=== PATIENT | female | born 1960 | race Caucasian/White ===

== ENCOUNTER 2019-06-09 15:59 | Inpatient (IN) ==
[~2019-06-09 15:59] MED LIST: DIPRIVAN VIAL ONE; XYLOCAINE 1 % (PLAIN) ONE
--- NOTE | 2019-06-09 16:03 | DR.GENAD ---
HPI Time Seen Time Seen by Provider: 06/09/19 16:02 HPI Comment HPI Comment: 58 yo f w/ prev hx of type 2 DM, gerd, CVA presents w/ n/v x 3 weeks. Patient reports since recent dc from hospital after having an ischemic CVA persistent n/v. 4-5 per day of non bilious/ non bloody emesis. a/w diffuse abdominal cramping and loose/ watery stools w/o blood or mucous. No chacon, new numbness/ weakness, f/c, urinary irritative sx's. Placed on insulin recently after recent hospital dc. No residual deficits from stroke reportedly. PMH PMH Past Medical History: Yes Past Medical History Comment: dm, hld, gerd, type 2 dm, cva Past Surgical History: Yes Social History Does patient currently use any type of tobacco product: No Have you used tobacco products in the last 12 months: No Type of Tobacco Use: None Alcohol Use: None Do you use any recreational Drugs:: No ROS Review of Systems Constitutional: Loss of Appetite; negative Chills and Fever Eyes: No Symptoms Reported ENTM: No Symptoms Reported Respiratoy: No Symptoms Reported Cardiovascular: No Symptoms Reported Gastrointestinal/Abdominal: Abdominal Pain, Diarrhea, Nausea, Vomiting and Food Intolerance; negative Constipation Genitourinary: No Symptoms Reported Neurological: No Symptoms Reported; negative Headache, Numbness, Paresthesia, Pre-existing Deficit, Tingling and Dizziness Musculoskeletal: No Symptoms Reported Integumentary: No Symptoms Reported Hematologic/Lymphatic: No Symptoms Reported Endocrine: No Symptoms Reported Psychiatric: No Symptoms Reported All Other Systems: Reviewed and Negative PE Vital Signs Vitals: Temperature 98.8 F Pulse Rate 79 Respiratory Rate 18 Blood Pressure 144/66 O2 Sat by Pulse Oximetry 94 General Limitations: No Limitations General Appearance: Alert and In No Apparent Distress Head Head Exam: Normal Inspection Eyes Eye exam: Normal Appearance ENT ENT Exam: Normal Exam External Ear Exam: Normal External Inspection TM/Canal Exam: Bilateral: Normal Nose Exam: Normal Nose Exam Mouth Exam: Normal Inspection Throat Exam: Normal Inspection Neck Neck Exam: Normal Inspection Chest Chest Inspection: Normal Inspection Respiratory Respiratory Exam: Normal Lung Sounds Bilat Respiratory Exam: Bilateral: Clear to Auscultation Cardiovascular Cardiovascular Exam: Regular Rate and Normal Rhythm Abdominal Exam Abdominal Exam: Normal Inspection, Normal Bowel Sounds and Soft Extremities Extremities Exam: Normal Inspection Back Back Exam: Normal Inspection Neurologic Neurological Exam: Alert and Oriented X3 Psychiatric Psychiatric Exam: Normal Affect and Normal Mood Skin Skin Exam: Warm, Dry, Intact and Normal Color MDM Additional Information Additional Information Obtained From: Old Records and Family Differential Diagnosis Differential Diagnosis: gastroenteritis, cva, ischemic bowell, uti COURSE Treatment Treatment: 58 yo f recently dc'd from hospital 3 weeks ago for ischemic cva presents w/ n/v. On exam, abd exam benign. Neurologically intact. CTH negative. Mild leukocytosis noted. Markedly elevated cre. Hyperglycemia noted. No prev hx of renal insufficiency in the past. Suspect CANDE from hypovolemia from recent GI losses. Will place iv. Will give IVF bolus and start aggressive hydration. Will replete K. Zofran ordered. Urine lytes ordered. Will require admission for cande eval. Consultation Consultation Comments: Discussed all details of case w/ Dr Boykin, whom agrees to admit patient. Education/Counseling Education/Counseling: Patient and Family Educated On: Treatment, Diagnosis and Prognosis ROR Labs Reviewed Laboratory Results Reviewed?: Yes Result Diagrams: 06/09/19 16:34 06/09/19 16:34 Laboratory: WBC 12.6 X10^3/uL (3.6-10.0) H 06/09/19 16:34 RBC 5.85 X10^6/uL (3.5-5.4) H 06/09/19 16:34 Hgb 15.9 g/dL (12.0-16.0) 06/09/19 16:34 Hct 47.4 % (36.0-47.0) H 06/09/19 16:34 MCV 81.0 fL (80.0-100.0) 06/09/19 16:34 MCH 27.3 pg (27.0-34.0) 06/09/19 16:34 MCHC 33.6 g/dL (33.0-35.0) 06/09/19 16:34 RDW 14.4 % (11.6-16.5) 06/09/19 16:34 Plt Count 265 X10^3/uL (150.0-450.0) 06/09/19 16:34 MPV 8.8 fL (7.4-11.0) 06/09/19 16:34 Neut % (Auto) 81.0 % (42.0-75.0) H 06/09/19 16:34 Lymph % (Auto) 13.3 % (21.0-51.0) L 06/09/19 16:34 Cuming % (Auto) 4.4 % (0.0-13.0) 06/09/19 16:34 Eos % (Auto) 0.7 % (0.9-2.9) L 06/09/19 16:34 Baso % (Auto) 0.6 % (0.2-1.0) 06/09/19 16:34 Neut # (Auto) 10.2 x10^3/uL (2.2-4.8) H 06/09/19 16:34 Lymph # (Auto) 1.7 X10^3/uL (1.3-2.9) 06/09/19 16:34 Cuming # (Auto) 0.6 x10^3/uL (0.3-0.8) 06/09/19 16:34 Eos # (Auto) 0.1 x10^3/uL (0.0-0.2) 06/09/19 16:34 Baso # (Auto) 0.1 X10^3/uL (0.0-0.1) 06/09/19 16:34 Absolute Nucleated RBC 0.0 /100WBC 06/09/19 16:34 Sodium 144 mmol/L (136-145) 06/09/19 16:34 Corrected Sodium 149 mmol/L (136-145) H 06/09/19 16:34 Potassium 2.8 mmol/L (3.5-5.1) L* 06/09/19 16:34 Chloride 99 mmol/L (98-107) 06/09/19 16:34 Carbon Dioxide 31.4 mmol/L (21-32) 06/09/19 16:34 BUN 33 mg/dL (7-18) H 06/09/19 16:34 Creatinine 3.87 mg/dL (0.55-1.02) H 06/09/19 16:34 Est GFR (MDRD) Af Amer 15 (>60) L 06/09/19 16:34 Est GFR (MDRD) Non-Af 13 (>60) L 06/09/19 16:34 Glucose 304 mg/dL (65-99) H 06/09/19 16:34 Calcium 9.5 mg/dL (8.5-10.1) 06/09/19 16:34 Opioid Opioid Risk Tool Total: 0 Total Score Risk Category: Low Risk Copyright: [employer] HAND predicting aberrant behaviors
[2019-06-09] MEDS ORDERED: ZOFRAN INJ 4 MG VIAL IVP ONE (16:06)
[2019-06-09 16:09] VITALS: BMI 35.2
[2019-06-09 16:47] LABS: BASOPHILS # (AUTO) 0.1 X10^3/uL (0.0-0.1); BASOPHILS % (AUTO) 0.6 % (0.2-1.0); EOSINOPHILS # (AUTO) 0.1 x10^3/uL (0.0-0.2); EOSINOPHILS % (AUTO) 0.7 % (0.9-2.9); HEMATOCRIT 47.4 % (36.0-47.0); HEMOGLOBIN 15.9 g/dL (12.0-16.0); LYMPHOCYTES # (AUTO) 1.7 X10^3/uL (1.3-2.9); LYMPHOCYTES % (AUTO) 13.3 % (21.0-51.0); MEAN CORPUSCULAR HEMOGLOBIN 27.3 pg (27.0-34.0); MEAN CORPUSCULAR HGB CONC 33.6 g/dL (33.0-35.0); MEAN PLATELET VOLUME 8.8 fL (7.4-11.0); MONOCYTES # (AUTO) 0.6 x10^3/uL (0.3-0.8); MONOCYTES % (AUTO) 4.4 % (0.0-13.0); NEUTROPHILS # (AUTO) 10.2 x10^3/uL (2.2-4.8); PLATELET COUNT 265 X10^3/uL (150.0-450.0); RED BLOOD COUNT 5.85 X10^6/uL (3.5-5.4); RED CELL DISTRIBUTION WIDTH 14.4 % (11.6-16.5); WHITE BLOOD COUNT 12.6 X10^3/uL (3.6-10.0)
[2019-06-09 16:52] LABS: CALCIUM 9.5 mg/dL (8.5-10.1); CARBON DIOXIDE 31.4 mmol/L (21-32); CREATININE 3.87 mg/dL (0.55-1.02)
[2019-06-09] MEDS ORDERED: ZOFRAN INJ 4 MG VIAL ONE (16:52)
[2019-06-09] MEDS ORDERED: NS 1000 ML 1,000 ML IV ONE (17:01)
--- NOTE | 2019-06-09 17:02 | CT ---
HISTORY: Vomiting Study: CT brain without contrast Comparison: None Technique: Multiple axial images of the brain were obtained from the skull base to the vertex without administration of IV contrast. Findings: No acute intraparenchymal hemorrhage or mass can be identified. No extra-axial fluid collections are seen. No alteration in the attenuation of the brain parenchyma can be identified to suggest acute or subacute ischemic change. The ventricular system is symmetric and nondilated. The extracranial structures are grossly unremarkable. IMPRESSION: 1. No acute intracranial process can be identified. Reported By:
[2019-06-09] MEDS ORDERED: NS 1000 ML 1,000 ML ONE (17:16)
--- NOTE | 2019-06-09 17:45 | CT ---
HISTORY: Vomiting Study: CT abdomen and pelvis without contrast Comparison: None Technique: Multiple axial images of the abdomen and pelvis were obtained from the lung bases to the pubic symphysis without the administration of IV contrast. Dose reduction techniques including Automated Exposure Control (AEC) and adjustment of mA and kV were utilized. Findings: The visualized portions of the lung bases are unremarkable. The liver, spleen, pancreas, kidneys, and adrenal glands are unremarkable in their CT appearance. The gallbladder is unremarkable in its CT appearance. No significant mesenteric lymphadenopathy or stranding can be observed. No free fluid or free air is seen within the abdomen. No bowel wall thickening or bowel dilatation is present. The colon is unremarkable. Specifically, there is no diverticulosis noted within the sigmoid colon. The urinary bladder is grossly unremarkable. The bony structures are grossly intact. IMPRESSION: Unremarkable evaluation of the abdomen and pelvis without contrast. Reported By:
[2019-06-09 18:10] LABS: BILIRUBIN,URINE NEGATIVE (NEGATIVE); BLOOD/HEMOGLOBIN,URINE 1+ (NEGATIVE); GLUCOSE, URINE 1+ (NEGATIVE); KETONES,URINE 1+ (NEGATIVE); LEUKOCYTE ESTERASE ,URINE NEGATIVE (NEGATIVE); NITRITES,URINE NEGATIVE (NEGATIVE); PROTEIN,URINE 1+ (NEGATIVE); UROBILINOGEN,URINE NORMAL (NORMAL)
[2019-06-09 18:12] LABS: SODIUM,URINE 54 mmol/L (40-220)
[2019-06-09] MEDS ORDERED: ANTIVERT TAB 25 MG PO PRN (18:12)
[2019-06-09] MEDS ORDERED: ZOFRAN INJ 4 MG VIAL IVP PRN (18:16)
[2019-06-09] MEDS ORDERED: HumuLIN R SC PRN (18:19)
[2019-06-09 18:32] LABS: APPEARANCE,URINE CLEAR (CLEAR); COLOR,URINE YELLOW (YELLOW)
[2019-06-09 18:33] LABS: BACTERIA,URINE NEGATIVE /HPF (NEGATIVE); HYALINE CASTS, URINE FEW /LPF (NEGATIVE); RBC,URINE 0-2 /HPF (0-3); SQUAMOUS EPITHELIAL CELL,UR FEW /HPF (NEGATIVE)
[2019-06-09] MEDS ORDERED: MAGNESIUM SULFATE 1 GRAM/100 mL PREMIX 2 G/200 ML BAG IV SCH (19:00)
[2019-06-09] MEDS ORDERED: MAGNESIUM SULFATE 50% INJ VIAL ONE (19:53)
[2019-06-09] MEDS ORDERED: NS 100 ML IV 100 ML IV ONE (19:53)
[2019-06-09] MEDS ORDERED: PHENERGAN INJ 25 MG IM ONE ×2 (20:03→20:04)
[2019-06-09] MEDS ORDERED: LEVEMIR SC SCH (21:00)
[2019-06-09] MEDS ORDERED: LIPITOR TAB 40 MG PO SCH (21:00)
[2019-06-09] MEDS: PriLOSEC PO SCH (21:11)
[2019-06-09] MEDS: NS 1000 ML 1,000 ML IV SCH (21:14)
[2019-06-09] MEDS: SNACK - Diabetic Appropriate PO SCH (21:17)
[2019-06-09] MEDS ORDERED: MAALOX or MYLANTA PO PRN (23:20)
[2019-06-10] MEDS: NS 1000 ML 1,000 ML IV SCH ×4 (04:44→20:37)
[2019-06-10 05:41] LABS: CALCIUM 8.2 mg/dL (8.5-10.1); CARBON DIOXIDE 29.8 mmol/L (21-32); CREATININE 2.79 mg/dL (0.55-1.02); TOTAL PROTEIN 6.3 g/dL (6.4-8.2)
[2019-06-10] MEDS ORDERED: NS 1000 ML 1,000 ML IV ONE (10:48)
[2019-06-10] MEDS ORDERED: ZOFRAN INJ 4 MG VIAL IVP PRN ×2 (10:52→17:05)
[2019-06-10] MEDS: SYNTHROID 50 mcg TAB PO SCH (16:30)
[2019-06-10] MEDS: ASPIRIN EC 81 MG PO SCH (16:31)
[2019-06-10] MEDS: PriLOSEC PO SCH ×2 (16:32→20:36)
[2019-06-10] MEDS ORDERED: PHENERGAN INJ 25 MG IM PRN (17:04)
[2019-06-10] MEDS: VORTIOXETINE 10 MG PO SCH (17:52)
[2019-06-10] MEDS: ACTOS PO SCH (17:53)
[2019-06-10] MEDS: VSL#3 PO SCH (17:53)
[2019-06-10] MEDS ORDERED: PHENERGAN INJ 25 MG IM ONE (17:56)
[2019-06-10] MEDS: SNACK - Diabetic Appropriate PO SCH (21:20)
[2019-06-11] MEDS: NS 1000 ML 1,000 ML IV SCH (02:06)
[2019-06-11 05:39] LABS: BASOPHILS % (AUTO) 0.6 % (0.2-1.0); EOSINOPHILS # (AUTO) 0.2 x10^3/uL (0.0-0.2); EOSINOPHILS % (AUTO) 2.5 % (0.9-2.9); HEMATOCRIT 35.4 % (36.0-47.0); LYMPHOCYTES # (AUTO) 1.7 X10^3/uL (1.3-2.9); MEAN CORPUSCULAR HEMOGLOBIN 27.1 pg (27.0-34.0); MEAN CORPUSCULAR HGB CONC 33.5 g/dL (33.0-35.0); MEAN PLATELET VOLUME 8.9 fL (7.4-11.0); MONOCYTES # (AUTO) 0.5 x10^3/uL (0.3-0.8); MONOCYTES % (AUTO) 6.2 % (0.0-13.0); NEUTROPHILS # (AUTO) 5.2 x10^3/uL (2.2-4.8); NEUTROPHILS % (AUTO) 68.7 % (42.0-75.0); PLATELET COUNT 166 X10^3/uL (150.0-450.0); RED BLOOD COUNT 4.37 X10^6/uL (3.5-5.4); RED CELL DISTRIBUTION WIDTH 13.8 % (11.6-16.5); WHITE BLOOD COUNT 7.5 X10^3/uL (3.6-10.0)
[2019-06-11 05:43] LABS: HEMOGLOBIN 11.9 g/dL (12.0-16.0)
[2019-06-11 05:48] LABS: ALBUMIN 2.7 g/dL (3.4-5.0); CALCIUM 7.4 mg/dL (8.5-10.1); CARBON DIOXIDE 28.8 mmol/L (21-32); COR CA(FOR HYPOALB) 8.4 mg/dL (8.5-10.1); CREATININE 1.93 mg/dL (0.55-1.02); TOTAL PROTEIN 5.7 g/dL (6.4-8.2)
[2019-06-11] MEDS: VSL#3 PO SCH (09:31)
[2019-06-11] MEDS: ASPIRIN EC 81 MG PO SCH (09:32)
[2019-06-11] MEDS: ACTOS PO SCH (09:32)
[2019-06-11] MEDS: PriLOSEC PO SCH ×2 (09:32→20:30)
[2019-06-11] MEDS: VORTIOXETINE 10 MG PO SCH (09:33)
[2019-06-11] MEDS ORDERED: LR 1000 ML IV 1,000 ML IV ONE (09:50)
[2019-06-11] MEDS: LR 1000 ML IV 1,000 ML IV SCH ×2 (11:30→19:08)
--- NOTE | 2019-06-11 13:03 | DR.H&P ---
H&P - History & Physical for Day of: H&P Date: 06/11/19 - History of Present Illness History of Present Illness: still having vomiting , food intolerance and mild epigastric pain . having loose BM , no bleeding . having electrolyte imbalan and dehydration . 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, Ortho Surgery, Other - Family History Family Medical History: [place], Coronary Artery Disease, Heart Failure, Sudden Cardiac , Hypertension - Social History Does patient currently use any type of tobacco product: No Have you used tobacco products in the last 12 months: No Type of Tobacco Use: None Does any household member use tobacco: No Alcohol Use: None Drug Use: None - Medications Home Medications: acetaminophen [From Percocet] Allergy (Verified 06/09/19 16:02) codeine Allergy (Verified 06/09/19 16:02) oxycodone [From Percocet] Allergy (Verified 06/09/19 16:02) CONTINUE taking the following medications aspirin 81 mg PO DAILY 06/09/19 [History] atorvastatin 80 mg PO HS 06/09/19 [History] insulin aspart U-100 [Novolog Flexpen U-100 Insulin] 5 unit SUBCUT AC 06/09/19 [History] insulin detemir U-100 [Levemir U-100 Insulin] 10 unit SUBCUT HS 06/09/19 [History] levothyroxine 50 mcg PO DAILY 06/09/19 [History] meclizine 25 mg PO TID PRN 06/09/19 [History] metformin 500 mg PO DAILY 06/09/19 [History] omeprazole 20 mg PO BID 06/09/19 [History] ondansetron HCl 8 mg PO TID PRN 06/09/19 [History] vortioxetine [Trintellix] 10 mg PO DAILY 06/09/19 [History] - Physical Exam Vital Signs: Temperature 98.3 F Pulse Rate [Right Radial] 65 Pulse Rate 79 Respiratory Rate 20 Blood Pressure [Left Arm] 150/59 Blood Pressure 144/66 O2 Sat by Pulse Oximetry 98 - Allergies Allergies/Adverse Reactions: Allergies Allergy/AdvReac Type Severity Reaction Status Date / Time acetaminophen [From Percocet] Allergy Verified 06/09/19 16:02 codeine Allergy Verified 06/09/19 16:02 oxycodone [From Percocet] Allergy Verified 06/09/19 16:02
--- NOTE | 2019-06-11 13:07 | DR.PROGNOT ---
Hospital Progress Notes - Progress Note for Day of: Progress Note Date: 06/11/19 - Chief Complaint Chief Complaint: still having frequent vomiting and difficulty swallowing with heartburn. and epigastric pain . improved renal function , still with electrolye imbalance . having loose BM. - Past Medical Family Social History Past Med/Fam/Surg Hx: No changes since H&P Allergies: Allergies acetaminophen [From Percocet] Allergy (Verified 06/09/19 16:02) codeine Allergy (Verified 06/09/19 16:02) oxycodone [From Percocet] Allergy (Verified 06/09/19 16:02) - Review Of Systems ROS: No change since H&P - Vital Signs Vital Signs: Temperature 98.3 F Pulse Rate [Right Radial] 65 Pulse Rate 79 Respiratory Rate 20 Blood Pressure [Left Arm] 150/59 Blood Pressure 144/66 O2 Sat by Pulse Oximetry 98 - Physical Exam Oriented: Normal Eyes: Normal Ear: Normal Nose: Normal Throat: Normal Respiratory: Normal GI:Auscultation: Normal GI:Palpation: Normal GI: Tenderness: Epigastric (mild epigastric tenderness , BS+) Speech Pattern: Clear, Appropriate - Laboratory and Diagnostics Result Diagrams: 06/11/19 04:56 06/11/19 04:56 Labs: Laboratory WBC 7.5 X10^3/uL (3.6-10.0) 06/11/19 04:56 RBC 4.37 X10^6/uL (3.5-5.4) 06/11/19 04:56 Hgb 11.9 g/dL (12.0-16.0) L D 06/11/19 04:56 Hct 35.4 % (36.0-47.0) L 06/11/19 04:56 MCV 81.0 fL (80.0-100.0) 06/11/19 04:56 MCH 27.1 pg (27.0-34.0) 06/11/19 04:56 MCHC 33.5 g/dL (33.0-35.0) 06/11/19 04:56 RDW 13.8 % (11.6-16.5) 06/11/19 04:56 Plt Count 166 X10^3/uL (150.0-450.0) 06/11/19 04:56 MPV 8.9 fL (7.4-11.0) 06/11/19 04:56 Neut % (Auto) 68.7 % (42.0-75.0) 06/11/19 04:56 Lymph % (Auto) 22.0 % (21.0-51.0) 06/11/19 04:56 Russell % (Auto) 6.2 % (0.0-13.0) 06/11/19 04:56 Eos % (Auto) 2.5 % (0.9-2.9) 06/11/19 04:56 Baso % (Auto) 0.6 % (0.2-1.0) 06/11/19 04:56 Neut # (Auto) 5.2 x10^3/uL (2.2-4.8) H 06/11/19 04:56 Lymph # (Auto) 1.7 X10^3/uL (1.3-2.9) 06/11/19 04:56 Russell # (Auto) 0.5 x10^3/uL (0.3-0.8) 06/11/19 04:56 Eos # (Auto) 0.2 x10^3/uL (0.0-0.2) 06/11/19 04:56 Baso # (Auto) 0.0 X10^3/uL (0.0-0.1) 06/11/19 04:56 Absolute Nucleated RBC 0.0 /100WBC 06/11/19 04:56 Sodium 152 mmol/L (136-145) H* 06/11/19 04:56 Corrected Sodium 153 mmol/L (136-145) H 06/11/19 04:56 Potassium 2.7 mmol/L (3.5-5.1) L* 06/11/19 04:56 Chloride 112 mmol/L (98-107) H 06/11/19 04:56 Carbon Dioxide 28.8 mmol/L (21-32) 06/11/19 04:56 BUN 17 mg/dL (7-18) 06/11/19 04:56 Creatinine 1.93 mg/dL (0.55-1.02) H 06/11/19 04:56 Est GFR (MDRD) Af Amer 34 (>60) L 06/11/19 04:56 Est GFR (MDRD) Non-Af 28 (>60) L 06/11/19 04:56 Glucose 125 mg/dL (65-99) H 06/11/19 04:56 POC Glucose (mg/dL) 127 mg/dL (65-99) H 06/11/19 11:51 Calcium 7.4 mg/dL (8.5-10.1) L 06/11/19 04:56 Corrected Calcium 8.4 mg/dL (8.5-10.1) L 06/11/19 04:56 Magnesium 1.8 mg/dL (1.7-2.9) 06/10/19 05:00 Total Bilirubin 0.40 mg/dL (0.2-1.0) 06/11/19 04:56 AST 19 Units/L (15-37) 06/11/19 04:56 ALT 18 Units/L (12-78) 06/11/19 04:56 Alkaline Phosphatase 84 Units/L (46-116) 06/11/19 04:56 Total Protein 5.7 g/dL (6.4-8.2) L 06/11/19 04:56 Albumin 2.7 g/dL (3.4-5.0) L 06/11/19 04:56 Globulin 3.0 g/dL (2.5-4.5) 06/11/19 04:56 Albumin/Globulin Ratio 0.9 Ratio (1.1-2.1) L 06/11/19 04:56 Specimen Type Clean catch urine 06/09/19 17:40 Urine Color Yellow (YELLOW) 06/09/19 17:40 Urine Appearance Clear (CLEAR) 06/09/19 17:40 Urine pH 5.0 (5.0 - 8.0) 06/09/19 17:40 Ur Specific Bigelow 1.015 (1.000-1.030) 06/09/19 17:40 Urine Protein 1+ (NEGATIVE) 06/09/19 17:40 Urine Glucose (UA) 1+ (NEGATIVE) 06/09/19 17:40 Urine Ketones 1+ (NEGATIVE) 06/09/19 17:40 Urine Occult Blood 1+ (NEGATIVE) 06/09/19 17:40 Urine Nitrite Negative (NEGATIVE) 06/09/19 17:40 Urine Bilirubin Negative (NEGATIVE) 06/09/19 17:40 Urine Urobilinogen Normal (NORMAL) 06/09/19 17:40 Ur Leukocyte Esterase Negative (NEGATIVE) 06/09/19 17:40 Urine RBC 0-2 /HPF (0-3) 06/09/19 17:40 Urine WBC None seen /HPF (0-5) 06/09/19 17:40 Ur Squamous Epith Cells Few /HPF (NEGATIVE) 06/09/19 17:40 Urine Bacteria Negative /HPF (NEGATIVE) 06/09/19 17:40 Hyaline Casts Few /LPF (NEGATIVE) 06/09/19 17:40 Ur Culture Indicated? No/not indicated 06/09/19 17:40 Ur Random Sodium 54 mmol/L (40-220) 06/09/19 17:40 - Assessment and Plan 1: nausea , vomiting with GEDR and dysphagia . esophagitis /stricture . PUD , Gastritis. chronic diarrhea ,. electrolyte imbalance .and dehydration . same plan and EGD in [place] . - Problem Patient Problems: Patient Problems CANDE (acute kidney injury) (Acute) N17.9 Acute renal injury due to hypovolemia (Acute) N17.9, E86.1
[2019-06-11] MEDS: INVOKANA PO SCH (14:54)
[2019-06-11] MEDS: SYNTHROID 50 mcg TAB PO SCH (16:55)
[2019-06-11] MEDS: SNACK - Diabetic Appropriate PO SCH (20:28)
[2019-06-12] MEDS: LR 1000 ML IV 1,000 ML IV SCH ×3 (01:48→10:28)
[2019-06-12 05:55] LABS: BASOPHILS % (AUTO) 0.3 % (0.2-1.0); EOSINOPHILS # (AUTO) 0.2 x10^3/uL (0.0-0.2); HEMATOCRIT 34.8 % (36.0-47.0); HEMOGLOBIN 11.9 g/dL (12.0-16.0); LYMPHOCYTES # (AUTO) 1.9 X10^3/uL (1.3-2.9); LYMPHOCYTES % (AUTO) 21.9 % (21.0-51.0); MEAN CORPUSCULAR HEMOGLOBIN 27.4 pg (27.0-34.0); MEAN CORPUSCULAR HGB CONC 34.1 g/dL (33.0-35.0); MEAN CORPUSCULAR VOLUME 80.3 fL (80.0-100.0); MEAN PLATELET VOLUME 8.7 fL (7.4-11.0); MONOCYTES # (AUTO) 0.5 x10^3/uL (0.3-0.8); MONOCYTES % (AUTO) 5.7 % (0.0-13.0); NEUTROPHILS % (AUTO) 70.1 % (42.0-75.0); PLATELET COUNT 171 X10^3/uL (150.0-450.0); RED BLOOD COUNT 4.33 X10^6/uL (3.5-5.4); RED CELL DISTRIBUTION WIDTH 13.9 % (11.6-16.5); WHITE BLOOD COUNT 8.6 X10^3/uL (3.6-10.0)
[2019-06-12 06:08] LABS: ALANINE AMINOTRANSFERASE 18 Units/L (12-78); ALBUMIN 2.8 g/dL (3.4-5.0); ALKALINE PHOSPHATASE 88 Units/L (46-116); ASPARTATE AMINO TRANSFERASE 21 Units/L (15-37); BLOOD UREA NITROGEN 12 mg/dL (7-18); CARBON DIOXIDE 31.3 mmol/L (21-32); CHLORIDE 108 mmol/L (98-107); CREATININE 1.68 mg/dL (0.55-1.02); eGFR NON BLACK RACES 33 (>60)
[2019-06-12 06:18] LABS: SODIUM 150 mmol/L (136-145)
[2019-06-12] MEDS ORDERED: NS 1000 ML 1,000 ML ONE (07:17)
[2019-06-12] MEDS ORDERED: DIPRIVAN VIAL 40 ML ONE (07:29)
[2019-06-12] MEDS ORDERED: XYLOCAINE-MPF 1% ONE (07:30)
--- NOTE | 2019-06-12 08:35 | OR.IMMED ---
Immediate Post-Op Note - Immediate Post-Op Note Pre-Op Diagnosis: vomiting , dysphagia , GERD with esophagitis . Post-Op Diagnosis: hiatal hernia with moderate esophagitis and reflux . Procedure: EGD with Bx Surgeon/Lead Software Engineer: Lillie Complications: no Condition: Stable Post Hospital Plans and Medications: on Protonix 40 BID
[2019-06-12] MEDS: VORTIOXETINE 10 MG PO SCH (09:29)
[2019-06-12] MEDS: ASPIRIN EC 81 MG PO SCH (09:36)
[2019-06-12] MEDS: PriLOSEC PO SCH ×2 (09:36→21:07)
[2019-06-12] MEDS: ACTOS PO SCH (09:36)
[2019-06-12] MEDS: VSL#3 PO SCH (09:37)
[2019-06-12] MEDS: INVOKANA PO SCH (09:37)
[2019-06-12] MEDS ORDERED: LR 1000 ML IV 1,000 ML IV ONE (09:40)
[2019-06-12] MEDS ORDERED: MAGNESIUM SULFATE 1 GRAM/100 mL PREMIX 1 GM/100 ML BAG IV PRN (10:32)
[2019-06-12] MEDS: FLONASE NASAL SPRAY ENOSTRIL SCH (10:39)
[2019-06-12] MEDS ORDERED: MAGNESIUM SULFATE 1 GRAM/100 mL PREMIX 2 G/200 ML BAG IV SCH (10:40)
[2019-06-12] MEDS ORDERED: K-RIDER 10 MEQ/NS 100 ML 10 MEQ/100 ML BAG IV PRN (10:49)
[2019-06-12] MEDS ORDERED: POTASSIUM CHL 60 MEQ/NS 0.45% 500 ML IV PRN (10:49)
[2019-06-12] MEDS ORDERED: POTASSIUM CHL 40 MEQ/NS 0.45% 500 ML IV PRN (10:49)
[2019-06-12 11:01] LABS: AMYLASE 44 Units/L (25-115); LIPASE 121 Units/L (73-393)
[2019-06-12] MEDS: MAGNESIUM SULFATE 1 GRAM/100 mL PREMIX 2 G/200 ML BAG IV SCH ×2 (11:43→12:43)
[2019-06-12] MEDS: LR 1000 ML IV 1,000 ML with POTASSIUM CHLORIDE INJ 20 MEQ VIAL 20 MEQ IV SCH ×6 (13:04→21:19)
[2019-06-12] MEDS: SYNTHROID 50 mcg TAB PO SCH (16:23)
--- NOTE | 2019-06-12 18:58 | CT ---
CT SINUSES WITHOUT IV CONTRAST HISTORY: Headache and congestion Comparison: Head CT 06/09/2019 Technique: Multiple axial images of the paranasal sinuses were obtained without the administration of IV contrast. Coronal and sagittal reformats were performed and reviewed. Dose reduction techniques including Automated Exposure Control (AEC) and adjustment of mA and kV were utlized. Findings: Mild mucosal thickening of the ethmoid air cells and maxillary sinuses The nasal septum is midline. Ostiomeatal units bilaterally demonstrate mucosal thickening and narrowing. Visualized portions of the posterior fossa and intracranial structures are unremarkable as well. IMPRESSION: 1. Findings of acute sinusitis. Reported By:
--- NOTE | 2019-06-12 19:03 | CT ---
CT OF THE ABDOMEN WITHOUT CONTRAST HISTORY: Acute kidney injury. Hypovolemia. Comparison: None Technique: Non contrast axial images of the abdomen were obtained. Oral contrast was administered. Dose reduction techniques including Automated Exposure Control (AEC) and adjustment of mA and kV were utlized. Findings: The heart is normal in size. There is no pericardial effusion. Lung bases are clear without focal consolidation, pleural effusion or pneumothorax. Please note the sensitivity for focal lesion detection within the solid abdominal viscera is diminished without the use of IV contrast. Liver and spleen are normal in size, and contour. Hepatic steatosis.. No ductal dilitation. Gallbladder is present. No gallstones or gallbladder wall thickening. The pancreas is unremarkable. Adrenal glands are normal. Kidneys are without hydronephrosis or nephrolithiasis. No bowel obstruction or inflammation of the visualized bowel. No abnormal appearing mesenteric or retroperitoneal lymph nodes. No free fluid or fluid collections. No aggressive osseous lesions. IMPRESSION: 1. No source of patient's acute kidney injury, hypovolemia or hyperglycemia on this limited noncontrast examination. 2. Hepatic steatosis. Reported By:
[2019-06-12] MEDS: SNACK - Diabetic Appropriate PO SCH (21:05)
[2019-06-13] MEDS: LR 1000 ML IV 1,000 ML with POTASSIUM CHLORIDE INJ 20 MEQ VIAL 20 MEQ IV SCH ×2 (04:10)
[2019-06-13 06:29] LABS: BASOPHILS % (AUTO) 0.5 % (0.2-1.0); EOSINOPHILS # (AUTO) 0.2 x10^3/uL (0.0-0.2); EOSINOPHILS % (AUTO) 2.1 % (0.9-2.9); HEMATOCRIT 37.4 % (36.0-47.0); HEMOGLOBIN 12.6 g/dL (12.0-16.0); LYMPHOCYTES # (AUTO) 1.9 X10^3/uL (1.3-2.9); LYMPHOCYTES % (AUTO) 22.8 % (21.0-51.0); MEAN CORPUSCULAR HGB CONC 33.6 g/dL (33.0-35.0); MEAN CORPUSCULAR VOLUME 80.2 fL (80.0-100.0); MEAN PLATELET VOLUME 8.9 fL (7.4-11.0); MONOCYTES # (AUTO) 0.4 x10^3/uL (0.3-0.8); NEUTROPHILS # (AUTO) 5.7 x10^3/uL (2.2-4.8); NEUTROPHILS % (AUTO) 69.6 % (42.0-75.0); PLATELET COUNT 181 X10^3/uL (150.0-450.0); RED BLOOD COUNT 4.66 X10^6/uL (3.5-5.4); RED CELL DISTRIBUTION WIDTH 14.2 % (11.6-16.5); WHITE BLOOD COUNT 8.2 X10^3/uL (3.6-10.0)
[2019-06-13 06:30] LABS: ALANINE AMINOTRANSFERASE 19 Units/L (12-78); ALBUMIN 2.9 g/dL (3.4-5.0); ALKALINE PHOSPHATASE 94 Units/L (46-116); ASPARTATE AMINO TRANSFERASE 25 Units/L (15-37); BLOOD UREA NITROGEN 5 mg/dL (7-18); CALCIUM 8.2 mg/dL (8.5-10.1); CARBON DIOXIDE 31.7 mmol/L (21-32); CHLORIDE 106 mmol/L (98-107); COR CA(FOR HYPOALB) 9.1 mg/dL (8.5-10.1); CREATININE 1.32 mg/dL (0.55-1.02); MAGNESIUM 1.2 mg/dL (1.7-2.9); SODIUM 148 mmol/L (136-145); TOTAL PROTEIN 6.4 g/dL (6.4-8.2); eGFR NON BLACK RACES 44 (>60)
[2019-06-13] MEDS ORDERED: MAGNESIUM SULFATE 1 GRAM/100 mL PREMIX 1 GM/100 ML BAG IV SCH (08:00)
[2019-06-13] MEDS: ASPIRIN EC 81 MG PO SCH (08:47)
[2019-06-13] MEDS: PriLOSEC PO SCH (08:47)
[2019-06-13] MEDS: INVOKANA PO SCH (08:47)
[2019-06-13] MEDS: ACTOS PO SCH (08:47)
[2019-06-13] MEDS: NS 1/2 + KCL 20 MEQ/L 1,000 ML IV SCH ×2 (08:48→17:15)
[2019-06-13] MEDS: VSL#3 PO SCH (08:52)
[2019-06-13] MEDS: FLONASE NASAL SPRAY ENOSTRIL SCH (08:52)
[2019-06-13] MEDS: VORTIOXETINE 10 MG PO SCH (08:53)
--- NOTE | 2019-06-13 08:54 | DR.CONSULT ---
Consult - Consultation for Day of: Date: 06/12/19 - Chief Complaint Chief Complaint: Patient referred for diarrhea. Patient with complaints of nausea, vomiting and diarrhea. - History of Present Illness History of Present Illness: Patient is a 58 yo female who was referred for diarrhea. Patient with complaints of nausea, vomiting and diarrhea. Patient denies dysphagia, dyspepsia, abdominal pain, constipation, melena and hematochezia. EGD performed today by showed hiaal hernia and esophagitis. Patient states she has had a colon but has been more than 10 years ago. Hgb 11.9, hct 34.8, sodium 150, Potassium 3.0, BUN 12, Creatinine 1.68. Abdomen and pelvis CT negative. 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, Other - Family History Family Medical History: [place], Coronary Artery Disease, Heart Failure, Sudden Cardiac , Hypertension - Social History Does patient currently use any type of tobacco product: No Have you used tobacco products in the last 12 months: No Type of Tobacco Use: None Does any household member use tobacco: No Alcohol Use: None Drug Use: None - Medications Home Medications: acetaminophen [From Percocet] Allergy (Verified 06/09/19 16:02) codeine Allergy (Verified 06/09/19 16:02) oxycodone [From Percocet] Allergy (Verified 06/09/19 16:02) CONTINUE taking the following medications aspirin 81 mg PO DAILY 06/09/19 [History] atorvastatin 80 mg PO HS 06/09/19 [History] insulin aspart U-100 [Novolog Flexpen U-100 Insulin] 5 unit SUBCUT AC 06/09/19 [History] insulin detemir U-100 [Levemir U-100 Insulin] 10 unit SUBCUT HS 06/09/19 [History] levothyroxine 50 mcg PO DAILY 06/09/19 [History] meclizine 25 mg PO TID PRN 06/09/19 [History] metformin 500 mg PO DAILY 06/09/19 [History] omeprazole 20 mg PO BID 06/09/19 [History] ondansetron HCl 8 mg PO TID PRN 06/09/19 [History] vortioxetine [Trintellix] 10 mg PO DAILY 06/09/19 [History] - Review of Systems Constitutional: No Symptoms Reported Eyes: No Symptoms Reported ENT: No Symptoms Reported Respiratory: No Symptoms Reported Cardiovascular: No Symptoms Reported Gastrointestinal: See HPI, Nausea, Vomiting, Diarrhea. denies: Abdominal Pain, Constipation, Melena, Hematochezia - Physical Exam Vital Signs: Temperature 98.6 F Pulse Rate [Right Radial] 81 Pulse Rate 79 Respiratory Rate 20 Blood Pressure [Right Arm] 139/65 Blood Pressure [Left Arm] 136/53 Blood Pressure 144/66 O2 Sat by Pulse Oximetry 92 Oriented: Normal Eyes: Normal Ear: Normal Nose: Normal Throat: Normal Respiratory: Clear Throughout Cardiovascular: Normal : Normal Auscultation: Bowel Sounds: Normal Palpation: Normal, Other (no distention). negative: Spleen Enlarged, Liver Enlarged, Mass Pulsatile Tenderness: Normal Skin: Normal Musculoskeletal: Normal Psychiatric: Normal Mood Description: Calm Affect: Normal Speech Pattern: Clear, Appropriate - Plan Plan: Assessment. 1. Diarrhea. 2. GERD. Plan. 1. Colonoscopy on . 2. Protonix IV. Plan reviewed with - Allergies Allergies/Adverse Reactions: Allergies Allergy/AdvReac Type Severity Reaction Status Date / Time acetaminophen [From Percocet] Allergy Verified 06/09/19 16:02 codeine Allergy Verified 06/09/19 16:02 oxycodone [From Percocet] Allergy Verified 06/09/19 16:02
[2019-06-13] MEDS: ZOSYN VIAL 3.375 GRAMS 3.375 G in NS 100 ML IV + SPIKE MINIBAG* 100 ML IV SCH ×2 (10:00→17:15)
[2019-06-13] MEDS: PROTONIX INJ 40 MG VIAL IVP SCH ×2 (11:31→20:04)
[2019-06-13] MEDS ORDERED: MIRALAX POWDER (255 GRAMS BTL) PO NR (14:00)
[2019-06-13] MEDS ORDERED: DULCOLAX TAB EC 5 MG PO ONE ×2 (15:00→21:00)
[2019-06-13] MEDS: SYNTHROID 50 mcg TAB PO SCH (16:56)
[2019-06-13] MEDS: SNACK - Diabetic Appropriate PO SCH (21:51)
[2019-06-14] MEDS: NS 1/2 + KCL 20 MEQ/L 1,000 ML IV SCH ×4 (00:52→15:23)
[2019-06-14] MEDS: ZOSYN VIAL 3.375 GRAMS 3.375 G in NS 100 ML IV + SPIKE MINIBAG* 100 ML IV SCH ×3 (01:08→21:41)
[2019-06-14 06:29] LABS: BASOPHILS # (AUTO) 0.1 X10^3/uL (0.0-0.1); BASOPHILS % (AUTO) 0.7 % (0.2-1.0); EOSINOPHILS # (AUTO) 0.2 x10^3/uL (0.0-0.2); HEMATOCRIT 37.4 % (36.0-47.0); HEMOGLOBIN 12.5 g/dL (12.0-16.0); LYMPHOCYTES # (AUTO) 2.2 X10^3/uL (1.3-2.9); LYMPHOCYTES % (AUTO) 21.6 % (21.0-51.0); MEAN CORPUSCULAR HGB CONC 33.5 g/dL (33.0-35.0); MEAN CORPUSCULAR VOLUME 80.7 fL (80.0-100.0); MEAN PLATELET VOLUME 9.1 fL (7.4-11.0); MONOCYTES # (AUTO) 0.5 x10^3/uL (0.3-0.8); MONOCYTES % (AUTO) 4.7 % (0.0-13.0); NEUTROPHILS # (AUTO) 7.3 x10^3/uL (2.2-4.8); PLATELET COUNT 193 X10^3/uL (150.0-450.0); RED BLOOD COUNT 4.64 X10^6/uL (3.5-5.4); RED CELL DISTRIBUTION WIDTH 14.5 % (11.6-16.5); WHITE BLOOD COUNT 10.3 X10^3/uL (3.6-10.0)
[2019-06-14 06:37] LABS: ALANINE AMINOTRANSFERASE 21 Units/L (12-78); ALBUMIN 3.1 g/dL (3.4-5.0); ALKALINE PHOSPHATASE 95 Units/L (46-116); ASPARTATE AMINO TRANSFERASE 25 Units/L (15-37); BLOOD UREA NITROGEN 6 mg/dL (7-18); CALCIUM 7.7 mg/dL (8.5-10.1); CARBON DIOXIDE 27.9 mmol/L (21-32); CHLORIDE 104 mmol/L (98-107); COR CA(FOR HYPOALB) 8.4 mg/dL (8.5-10.1); CREATININE 1.36 mg/dL (0.55-1.02); MAGNESIUM 1.4 mg/dL (1.7-2.9); SODIUM 146 mmol/L (136-145); TOTAL PROTEIN 6.7 g/dL (6.4-8.2); eGFR NON BLACK RACES 42 (>60)
[2019-06-14] MEDS ORDERED: K-RIDER 10 MEQ/NS 100 ML 10 MEQ/100 ML BAG IV ONE ×2 (07:13→07:14)
[2019-06-14] MEDS: PROTONIX INJ 40 MG VIAL IVP SCH ×2 (09:09→20:29)
[2019-06-14] MEDS ORDERED: NS 500 ML IV 500 ML IV ONE (09:51)
[2019-06-14] MEDS ORDERED: DIPRIVAN VIAL 40 ML ONE (09:58)
[2019-06-14] MEDS: VSL#3 PO SCH (10:13)
[2019-06-14] MEDS: ASPIRIN EC 81 MG PO SCH (10:47)
[2019-06-14] MEDS: MAGNESIUM SULFATE 1 GRAM/100 mL PREMIX 2 G/200 ML BAG IV SCH ×2 (11:02→12:16)
[2019-06-14] MEDS: FLONASE NASAL SPRAY ENOSTRIL SCH (11:46)
[2019-06-14] MEDS ORDERED: NS IV SCH (14:00)
[2019-06-14] MEDS ORDERED: ZOSYN IV SCH (14:00)
[2019-06-14 14:20] LABS: MAGNESIUM 2.2 mg/dL (1.7-2.9)
[2019-06-14] MEDS: INVOKANA PO SCH (14:26)
[2019-06-14] MEDS: ACTOS PO SCH (14:26)
[2019-06-14] MEDS ORDERED: MAGNESIUM SULFATE 1 GRAM/100 mL PREMIX 1 G/100 ML BAG IV ONE (14:39)
[2019-06-14] MEDS: K-DUR TAB 20 MEQ PO SCH ×2 (14:57→20:30)
[2019-06-14] MEDS ORDERED: DIPRIVAN VIAL ONE (15:01)
[2019-06-14] MEDS ORDERED: XYLOCAINE 1 % (PLAIN) ONE (15:01)
[2019-06-14] MEDS ORDERED: STERILE WATER IRRIGATION IR ONE (15:21)
[2019-06-14] MEDS: IMODIUM CAP 2 MG PO PRN ×2 (15:28→21:52)
[2019-06-14] MEDS: SYNTHROID 50 mcg TAB PO SCH (15:29)
[2019-06-14] MEDS: SNACK - Diabetic Appropriate PO SCH (21:52)
[2019-06-15] MEDS: NS 1/2 + KCL 20 MEQ/L 1,000 ML IV SCH ×2 (01:04→11:51)
[2019-06-15 05:22] LABS: BASOPHILS % (AUTO) 0.4 % (0.2-1.0); EOSINOPHILS # (AUTO) 0.2 x10^3/uL (0.0-0.2); EOSINOPHILS % (AUTO) 2.2 % (0.9-2.9); HEMATOCRIT 33.4 % (36.0-47.0); HEMOGLOBIN 11.5 g/dL (12.0-16.0); LYMPHOCYTES # (AUTO) 1.4 X10^3/uL (1.3-2.9); MEAN CORPUSCULAR HEMOGLOBIN 27.4 pg (27.0-34.0); MEAN CORPUSCULAR HGB CONC 34.3 g/dL (33.0-35.0); MEAN CORPUSCULAR VOLUME 79.8 fL (80.0-100.0); MEAN PLATELET VOLUME 8.9 fL (7.4-11.0); MONOCYTES # (AUTO) 0.4 x10^3/uL (0.3-0.8); MONOCYTES % (AUTO) 5.5 % (0.0-13.0); NEUTROPHILS # (AUTO) 5.4 x10^3/uL (2.2-4.8); NEUTROPHILS % (AUTO) 72.9 % (42.0-75.0); PLATELET COUNT 193 X10^3/uL (150.0-450.0); RED BLOOD COUNT 4.19 X10^6/uL (3.5-5.4); RED CELL DISTRIBUTION WIDTH 13.9 % (11.6-16.5); WHITE BLOOD COUNT 7.4 X10^3/uL (3.6-10.0)
[2019-06-15 05:34] LABS: ALANINE AMINOTRANSFERASE 17 Units/L (12-78); ALBUMIN 2.6 g/dL (3.4-5.0); ALKALINE PHOSPHATASE 83 Units/L (46-116); ASPARTATE AMINO TRANSFERASE 22 Units/L (15-37); BLOOD UREA NITROGEN 5 mg/dL (7-18); CALCIUM 7.6 mg/dL (8.5-10.1); CARBON DIOXIDE 26.4 mmol/L (21-32); CHLORIDE 105 mmol/L (98-107); COR CA(FOR HYPOALB) 8.7 mg/dL (8.5-10.1); COR NA(FOR HYPERGLY) 144 mmol/L (136-145); CREATININE 1.13 mg/dL (0.55-1.02); MAGNESIUM 1.8 mg/dL (1.7-2.9); SODIUM 143 mmol/L (136-145); eGFR NON BLACK RACES 52 (>60)
[2019-06-15] MEDS: ZOSYN VIAL 3.375 GRAMS 3.375 G in NS 100 ML IV + SPIKE MINIBAG* 100 ML IV SCH (05:57)
[2019-06-15] MEDS: VSL#3 PO SCH ×2 (09:02→09:06)
[2019-06-15] MEDS: ACTOS PO SCH (09:02)
[2019-06-15] MEDS: K-DUR TAB 20 MEQ PO SCH (09:02)
[2019-06-15] MEDS: ASPIRIN EC 81 MG PO SCH (09:02)
[2019-06-15] MEDS: INVOKANA PO SCH (09:03)
[2019-06-15] MEDS: FLONASE NASAL SPRAY ENOSTRIL SCH (09:04)
[2019-06-15] MEDS: PROTONIX INJ 40 MG VIAL IVP SCH (09:04)
[2019-06-15 09:55] VITALS: BP 135/66
== END 2019-06-15 12:00 | disposition home or self-care (01) | DRG 684 ==
LOC: MED/SURG 15:59 → ER 15:59 → OBSVTOIN 18:11 → MED/SURG 20:14
PROVIDERS: ADMIT Obstetrics & Gynecology Obstetrics; ATTEND Obstetrics & Gynecology Obstetrics
DX: E87.6 Hypokalemia; J01.90 Acute sinusitis, unspecified; I25.10 Atherosclerotic heart disease of native coronary artery without angina pectoris; I10 Essential (primary) hypertension; E78.2 Mixed hyperlipidemia; R20.0 Anesthesia of skin; Z86.73 Personal history of transient ischemic attack (TIA), and cerebral infarction without residual deficits; K64.0 First degree hemorrhoids; E86.0 Dehydration; E86.1 Hypovolemia; R11.2 Nausea with vomiting, unspecified; K21.9 Gastro-esophageal reflux disease without esophagitis; K76.0 Fatty (change of) liver, not elsewhere classified; R13.11 Dysphagia, oral phase; R79.89 Other specified abnormal findings of blood chemistry; N17.8 Other acute kidney failure; E11.65 Type 2 diabetes mellitus with hyperglycemia; K44.9 Diaphragmatic hernia without obstruction or gangrene; K29.50 Unspecified chronic gastritis without bleeding; R19.4 Change in bowel habit
CPT/HCPCS: 36415; 70450; 70486; 74150; 74176; 80048; 80053; 81001; 82150; 83690; 83735; 84132; 84300; 85025; 87045; 87427; 87449; 87493; 87899; 96365; 96372; 96374; 96375; 99283; A4216; A4217; A4222; C9113; J7030; J1815; J2405; J2543; J2550; J2704; J3475; J3480; J7050; J7120